=== PATIENT | male | born 1955 | race Two or more races ===

== ENCOUNTER 2022-08-05 13:46 | Inpatient (IN) | payer MEDICARE, OTHER ==
[~2022-08-05] VITALS: Ht 175.3 cm; Wt 111.1 kg
[2022-08-05 15:19] LABS: CHLORIDE 107 mEq/L (98-107)
[2022-08-05 15:22] LABS: BASOPHILS % 1.1 % (0.0-2.0); EOSINOPHILS % 0.9 % (0.0-5.0); HEMATOCRIT. 34.8 % (42.0-52.0); HEMOGLOBIN. 11.1 g/dL (14.0-18.0); LYMPHOCYTES % 18.4 % (20.0-50.0); MEAN CORPUSCULAR HEMOGLOBIN 25.4 pg (28.0-32.0); MEAN CORPUSCULAR VOLUME 79.3 fL (80.0-94.0); MEAN PLATELET VOLUME 7.7 fl (7.4-10.4); MONOCYTES % 7.1 % (2.0-8.0); NEUTROPHILS % 72.5 % (40.0-76.0); PLATELET 406 x1000/uL (130-400); RED BLOOD CELL COUNT 4.39 mill/uL (4.7-6.1); RED CELL DISTRIBUTION WIDTH 16.9 % (11.6-14.6)
[2022-08-05] MEDS ORDERED: ASPIRIN 325MG EC TABLET PO ONE (15:30)
[2022-08-05] MEDS ORDERED: FUROSEMIDE 100MG/10ML VIAL IVP ONE (15:30)
[2022-08-05] MEDS ORDERED: ONDANSETRON HCL 4MG/2ML INJ IV PRN (18:00)
[2022-08-05] MEDS: ACETAMINOPHEN 325MG TABLET PO PRN (20:37)
[2022-08-05 21:23] VITALS: BP 150/61
[2022-08-06] VITALS: BP 148/56
[2022-08-06] MEDS ORDERED: DEXTROSE 50% WATER 50ML SYRINGE IV PRN (00:30)
[2022-08-06 04:00] VITALS: BP 167/71
[2022-08-06] MEDS ORDERED: GABA-529 MT (06:26)
[2022-08-06 06:29] LABS: EOSINOPHILS % 2.7 % (0.0-5.0); HEMATOCRIT. 36.2 % (42.0-52.0); HEMOGLOBIN. 11.6 g/dL (14.0-18.0); LYMPHOCYTES % 18.9 % (20.0-50.0); MEAN CORPUSCULAR HEMOGLOBIN 25.3 pg (28.0-32.0); MEAN CORPUSCULAR VOLUME 78.8 fL (80.0-94.0); MEAN PLATELET VOLUME 7.7 fl (7.4-10.4); MONOCYTES % 7.8 % (2.0-8.0); NEUTROPHILS % 69.6 % (40.0-76.0); PLATELET 394 x1000/uL (130-400); RED CELL DISTRIBUTION WIDTH 17.3 % (11.6-14.6)
[2022-08-06 06:47] LABS: CHLORIDE 103 mEq/L (98-107)
[2022-08-06] MEDS: BLOOD SUGAR DIAGNOSTIC STRIP TEST SCH ×4 (07:38→21:52)
[2022-08-06] MEDS: INSULIN LISPRO 100 UNITS/ML SUBCUT SCH ×4 (07:39→21:00)
[2022-08-06 08:00] VITALS: BP 163/45
[2022-08-06] MEDS: GABAPENTIN 300MG CAPSULE PO SCH (08:54)
[2022-08-06] MEDS: ACETAMINOPHEN 325MG TABLET PO PRN ×3 (08:54→21:51)
[2022-08-06] MEDS: AMLODIPINE 10MG TABLET PO SCH (08:54)
[2022-08-06] MEDS ORDERED: FUROSEMIDE 40MG/4ML VIAL IV SCH (09:00)
[2022-08-06] MEDS ORDERED: PNEUMOCOCCAL 23-VAL P-SAC VAC 0.5 ML IM ONE (11:00)
[2022-08-06] MEDS ORDERED: INFLUENZA VACCINE 05/PF 0.5 ML SYRINGE IM ONE (11:00)
[2022-08-06 12:00] VITALS: BP 149/62
[2022-08-06] MEDS ORDERED: IPRATROPIUM/ALBUTEROL 0.5-3(2.5)MG/3ML NEB HHN PRN (14:30)
[2022-08-06 16:00] VITALS: BP 158/63
[2022-08-06] MEDS ORDERED: NALOXONE HCL 0.4MG/ML VIAL IV PRN (17:15)
[2022-08-06] MEDS ORDERED: POTASSIUM CHLORIDE 20MEQ TABLET SR PO NR (17:30)
[2022-08-06] MEDS: HYDROCODONE/ACETAMINOPHEN 5/325MG TABLET PO PRN (18:39)
[2022-08-06 20:30] VITALS: BP 142/53
[2022-08-06 21:23] LABS: BASOPHILS % 0.8 % (0.0-2.0); EOSINOPHILS % 1.1 % (0.0-5.0); HEMATOCRIT. 36.4 % (42.0-52.0); HEMOGLOBIN. 11.7 g/dL (14.0-18.0); LYMPHOCYTES % 14.7 % (20.0-50.0); MEAN CORPUSCULAR HEMOGLOBIN 25.3 pg (28.0-32.0); MEAN PLATELET VOLUME 7.3 fl (7.4-10.4); MONOCYTES % 7.7 % (2.0-8.0); NEUTROPHILS % 75.7 % (40.0-76.0); PLATELET 399 x1000/uL (130-400); RED CELL DISTRIBUTION WIDTH 17.5 % (11.6-14.6)
[2022-08-06] MEDS: PIPERACILLIN/TAZOBACTAM 3.375 G in DEXTROSE 5% WATER 50 ML IV SCH (22:13)
[2022-08-07 00:45] VITALS: BP 177/92
[2022-08-07] MEDS: CLONIDINE 0.1MG TABLET PO PRN (01:41)
[2022-08-07] MEDS: HYDROCODONE/ACETAMINOPHEN 5/325MG TABLET PO PRN ×3 (01:47→21:08)
[2022-08-07 04:30] VITALS: BP 138/52
[2022-08-07] MEDS: PIPERACILLIN/TAZOBACTAM 3.375 G in DEXTROSE 5% WATER 50 ML IV SCH ×3 (05:01→21:17)
[2022-08-07] MEDS: BLOOD SUGAR DIAGNOSTIC STRIP TEST SCH ×4 (07:29→21:06)
[2022-08-07] MEDS: INSULIN LISPRO 100 UNITS/ML SUBCUT SCH ×4 (07:29→21:00)
[2022-08-07 08:00] VITALS: BP_SYST 128; BP_SYST 161; BP_DIAS 73; BP_DIAS 78
[2022-08-07 12:00] VITALS: BP 131/73
[2022-08-07] MEDS: GABAPENTIN 300MG CAPSULE PO SCH (14:25)
[2022-08-07] MEDS: AMLODIPINE 10MG TABLET PO SCH (14:26)
[2022-08-07] MEDS: CITALOPRAM HYDROBROMIDE 10MG TABLET PO SCH (14:26)
[2022-08-07] MEDS: FUROSEMIDE 40MG/4ML VIAL IV SCH (14:28)
[2022-08-07 16:00] VITALS: BP_SYST 145; BP_SYST 169; BP_DIAS 63; BP_DIAS 80
[2022-08-08 02:51] LABS: CLARITY URINE CLEAR (CLEAR); COLOR URINE YELLOW (YELLOW); KETONES URINE TRACE (NEGATIVE); LEUKOCYTE ESTERASE URINE NEGATIVE (NEGATIVE); NITRITE URINE NEGATIVE (NEGATIVE); OCCULT BLOOD URINE NEGATIVE (NEGATIVE); PROTEIN URINE 1+ (NEGATIVE); SPECIFIC GRAVITY URINE 1.024 (1.005-1.030)
[2022-08-08] MEDS: HYDROCODONE/ACETAMINOPHEN 5/325MG TABLET PO PRN ×3 (03:08→16:24)
[2022-08-08] MEDS: PIPERACILLIN/TAZOBACTAM 3.375 G in DEXTROSE 5% WATER 50 ML IV SCH ×3 (05:29→21:27)
[2022-08-08] MEDS: INSULIN LISPRO 100 UNITS/ML SUBCUT SCH ×2 (05:54→11:48)
[2022-08-08] MEDS: BLOOD SUGAR DIAGNOSTIC STRIP TEST SCH ×2 (05:54→11:48)
[2022-08-08 07:58] VITALS: BP 133/74
[2022-08-08] MEDS: CITALOPRAM HYDROBROMIDE 10MG TABLET PO SCH (08:10)
[2022-08-08] MEDS: GABAPENTIN 300MG CAPSULE PO SCH (08:10)
[2022-08-08] MEDS: AMLODIPINE 10MG TABLET PO SCH (08:11)
[2022-08-08] MEDS: ENOXAPARIN 120MG/0.8ML SYR SUBCUT SCH ×2 (08:11→21:27)
[2022-08-08] MEDS: FUROSEMIDE 40MG/4ML VIAL IV SCH (08:11)
[2022-08-08 11:58] VITALS: BP 125/64
[2022-08-08 15:42] VITALS: BP 135/59
[2022-08-08] MEDS ORDERED: IOHEXOL-350 100 ML BOTTLE ONE (17:57)
[2022-08-08 20:00] VITALS: BP 142/67
[2022-08-09] VITALS (8 sets, daily range): BP systolic 127–180; BP diastolic 46–86
[2022-08-09] MEDS: HYDROCODONE/ACETAMINOPHEN 5/325MG TABLET PO PRN ×4 (02:15→21:21)
[2022-08-09] MEDS: CLONIDINE 0.1MG TABLET PO PRN (05:16)
[2022-08-09] MEDS: PIPERACILLIN/TAZOBACTAM 3.375 G in DEXTROSE 5% WATER 50 ML IV SCH ×3 (05:16→21:18)
[2022-08-09 07:59] LABS: BASOPHILS % 1.4 % (0.0-2.0); HEMATOCRIT. 36.9 % (42.0-52.0); HEMOGLOBIN. 11.7 g/dL (14.0-18.0); MEAN CORPUSCULAR VOLUME 78.8 fL (80.0-94.0); MEAN PLATELET VOLUME 7.6 fl (7.4-10.4); MONOCYTES % 10.8 % (2.0-8.0); NEUTROPHILS % 55.8 % (40.0-76.0); PLATELET 351 x1000/uL (130-400); RED BLOOD CELL COUNT 4.68 mill/uL (4.7-6.1); RED CELL DISTRIBUTION WIDTH 17.3 % (11.6-14.6)
[2022-08-09 08:05] LABS: CHLORIDE 107 mEq/L (98-107)
[2022-08-09] MEDS: AMLODIPINE 10MG TABLET PO SCH (08:18)
[2022-08-09] MEDS: FUROSEMIDE 40MG/4ML VIAL IV SCH (08:18)
[2022-08-09] MEDS: GABAPENTIN 300MG CAPSULE PO SCH (08:18)
[2022-08-09] MEDS: CITALOPRAM HYDROBROMIDE 10MG TABLET PO SCH (08:18)
[2022-08-09] MEDS: ENOXAPARIN 120MG/0.8ML SYR SUBCUT SCH ×2 (08:18→21:18)
[2022-08-10] VITALS: BP 153/58
[2022-08-10 04:00] VITALS: BP 153/63
[2022-08-10] MEDS: PIPERACILLIN/TAZOBACTAM 3.375 G in DEXTROSE 5% WATER 50 ML IV SCH ×3 (06:40→21:48)
[2022-08-10 08:00] VITALS: BP 135/59
[2022-08-10] MEDS: AMLODIPINE 10MG TABLET PO SCH (09:00)
[2022-08-10] MEDS: FUROSEMIDE 40MG/4ML VIAL IV SCH (09:00)
[2022-08-10] MEDS: GABAPENTIN 300MG CAPSULE PO SCH (10:37)
[2022-08-10] MEDS: CITALOPRAM HYDROBROMIDE 10MG TABLET PO SCH (10:37)
[2022-08-10] MEDS: ENOXAPARIN 120MG/0.8ML SYR SUBCUT SCH ×2 (10:39→20:09)
[2022-08-10 12:00] VITALS: BP 145/62
[2022-08-10] MEDS: HYDROCODONE/ACETAMINOPHEN 5/325MG TABLET PO PRN (15:03)
[2022-08-10] MEDS: CLONIDINE 0.1MG TABLET PO PRN (15:11)
[2022-08-10 16:00] VITALS: BP 158/65
[2022-08-10 20:00] VITALS: BP 137/42
[2022-08-11] VITALS: BP 164/66
[2022-08-11 04:00] VITALS: BP 194/64
[2022-08-11] MEDS: CLONIDINE 0.1MG TABLET PO PRN (05:05)
[2022-08-11] MEDS: PIPERACILLIN/TAZOBACTAM 3.375 G in DEXTROSE 5% WATER 50 ML IV SCH (05:05)
[2022-08-11 08:00] VITALS: BP 134/55
[2022-08-11] MEDS: CITALOPRAM HYDROBROMIDE 10MG TABLET PO SCH (10:16)
[2022-08-11] MEDS: FUROSEMIDE 40MG/4ML VIAL IV SCH (10:16)
[2022-08-11] MEDS: ENOXAPARIN 120MG/0.8ML SYR SUBCUT SCH ×2 (10:17→20:43)
[2022-08-11] MEDS: GABAPENTIN 300MG CAPSULE PO SCH (10:17)
[2022-08-11] MEDS: AMLODIPINE 10MG TABLET PO SCH (10:17)
[2022-08-11] MEDS: HYDROCODONE/ACETAMINOPHEN 5/325MG TABLET PO PRN ×2 (10:19→14:45)
[2022-08-11] MEDS ORDERED: HYDRALAZINE HCL 100MG TABLET PO NR (10:45)
[2022-08-11 12:00] VITALS: BP 125/45
[2022-08-11 16:00] VITALS: BP 133/40
[2022-08-11] MEDS: ACETAMINOPHEN 325MG TABLET PO PRN (17:35)
[2022-08-11 20:00] VITALS: BP 140/51
[2022-08-11] MEDS: HYDRALAZINE HCL 100MG TABLET PO SCH (20:47)
[2022-08-12] VITALS: BP 109/45
[2022-08-12] MEDS: ACETAMINOPHEN 325MG TABLET PO PRN (03:57)
[2022-08-12 04:00] VITALS: BP 128/49
[2022-08-12 06:50] LABS: BASOPHILS % 0.9 % (0.0-2.0); EOSINOPHILS % 2.6 % (0.0-5.0); HEMATOCRIT. 37.7 % (42.0-52.0); HEMOGLOBIN. 12.2 g/dL (14.0-18.0); LYMPHOCYTES % 32.4 % (20.0-50.0); MEAN CORPUSCULAR HEMOGLOBIN 25.3 pg (28.0-32.0); MEAN CORPUSCULAR VOLUME 78.2 fL (80.0-94.0); MEAN PLATELET VOLUME 7.7 fl (7.4-10.4); MONOCYTES % 6.7 % (2.0-8.0); NEUTROPHILS % 57.4 % (40.0-76.0); PLATELET 343 x1000/uL (130-400); RED BLOOD CELL COUNT 4.82 mill/uL (4.7-6.1); RED CELL DISTRIBUTION WIDTH 17.2 % (11.6-14.6)
[2022-08-12 06:52] LABS: PROTHROMBIN TIME 11.1 sec (9.6-11.0)
[2022-08-12] MEDS ORDERED: NALOXONE HCL 0.4MG/ML VIAL IV PRN (07:45)
[2022-08-12 08:00] VITALS: BP 131/54
[2022-08-12] MEDS: HYDROCODONE/ACETAMINOPHEN 5/325MG TABLET PO PRN ×3 (08:30→22:17)
[2022-08-12] MEDS: CITALOPRAM HYDROBROMIDE 10MG TABLET PO SCH (08:52)
[2022-08-12] MEDS: AMLODIPINE 10MG TABLET PO SCH (08:52)
[2022-08-12] MEDS: GABAPENTIN 300MG CAPSULE PO SCH (08:52)
[2022-08-12] MEDS: HYDRALAZINE HCL 100MG TABLET PO SCH ×2 (08:52→21:43)
[2022-08-12] MEDS: ENOXAPARIN 120MG/0.8ML SYR SUBCUT SCH ×2 (08:53→21:43)
[2022-08-12 12:00] VITALS: BP 136/43
[2022-08-12 16:00] VITALS: BP 129/59
[2022-08-12 20:00] VITALS: BP 138/54
[2022-08-13] VITALS (7 sets, daily range): BP systolic 107–130; BP diastolic 50–69
[2022-08-13] MEDS: HYDROCODONE/ACETAMINOPHEN 5/325MG TABLET PO PRN ×3 (08:00→20:33)
[2022-08-13] MEDS: AMLODIPINE 10MG TABLET PO SCH (08:17)
[2022-08-13] MEDS: HYDRALAZINE HCL 100MG TABLET PO SCH (08:17)
[2022-08-13] MEDS: ENOXAPARIN 120MG/0.8ML SYR SUBCUT SCH ×2 (08:17→20:39)
[2022-08-13] MEDS: GABAPENTIN 300MG CAPSULE PO SCH ×3 (08:17→20:33)
[2022-08-13] MEDS: CITALOPRAM HYDROBROMIDE 10MG TABLET PO SCH (08:17)
== END 2022-08-13 23:38 | DRG 291 ==
LOC: ER 13:46 → 8WST 17:15 → EDBEDREQ 17:16 → EDBEDREQTM 17:16 → 6EST 08-10 15:45
PROVIDERS: ADMIT Internal Medicine; ATTEND Internal Medicine
DX: I11.0 Hypertensive heart disease with heart failure (principal); I50.33 Acute on chronic diastolic (congestive) heart failure; F33.2 Major depressive disorder, recurrent severe without psychotic features; I82.433 Acute embolism and thrombosis of popliteal vein, bilateral; E66.9 Obesity, unspecified; F41.9 Anxiety disorder, unspecified; E11.40 Type 2 diabetes mellitus with diabetic neuropathy, unspecified; F17.210 Nicotine dependence, cigarettes, uncomplicated; Z68.36 Body mass index [BMI] 36.0-36.9, adult; Z79.899 Other long term (current) drug therapy; Z91.51 Personal history of suicidal behavior; Z86.73 Personal history of transient ischemic attack (TIA), and cerebral infarction without residual deficits; Z59.00 Homelessness unspecified; Z81.8 Family history of other mental and behavioral disorders
CPT/HCPCS: 36415; 70551; 71045; 71275; 72141; 72148; 80048; 80053; 81003; 82962; 83036; 83880; 84484; 85025; 87426; 87804; 90686; 90732; 93005; 93306; 93970; 97110; 97162; 97166; 97530; 97535; 99285; C1893; C9803; J1650; J1940; J2405; J2543; J7060; Q9967